=== PATIENT | male | born 1965 | race Caucasian/White ===

== ENCOUNTER 2022-05-20 19:36 | Emergency (ER) | payer MEDICAID, SELFPAY ==
[2022-05-20 19:40] VITALS: BP 253/145; PULSE 99; RESP 18; TEMP 36.3; O2SAT 96; BMI 36.0
--- NOTE | 2022-05-20 19:48 | ECG_ITS ---
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 Measurements Intervals [place] Rate: 100 P: -2 AR: 146 QRS: 70 QRSD: 126 T: -13 QT: 381 QTc: 493 Interpretive Statements SINUS TACHYCARDIA WITH FREQUENT SUPRAVENTRICULAR PREMATURE COMPLEXES INDETERMINATE AXIS RIGHT BUNDLE BRANCH BLOCK [120+ ms QRS DURATION, UPRIGHT V1, 40+ ms S IN I/aVL/V4/V5/V6] MODERATE T-WAVE ABNORMALITY, CONSIDER INFERIOR ISCHEMIA [-0.1+ mV T-WAVE IN II/aVF] No previous ECG available for comparison Electronically Signed On 05-21-2022 18:02:15 CDT by Liane Olson M.D. [id number]
--- NOTE | 2022-05-20 19:58 | XRR_ITS ---
PROCEDURE INFORMATION: Exam: XR Chest Exam date and time: 05/20/2022 8:24 PM Age: 56 years old Clinical indication: Other: HTN TECHNIQUE: Imaging protocol: Radiologic exam of the chest. Views: 1 view. COMPARISON: No relevant prior studies available. FINDINGS: Lungs: Lungs are clear bilaterally. Pleural spaces: No pleural effusion. No pneumothorax. Heart/Mediastinum: The cardiac silhouette is mildly enlarged. Mediastinal contours are unremarkable. Bones/joints: Unremarkable for age. XR/XR chest 1V portable [id number] IMPRESSION: 1. No acute cardiopulmonary process. 2. Incidental/nonacute findings are listed in the report.
[2022-05-20] MEDS: labetalol 5 mg/mL SDV 20mL 20 MG IVP ×2 (20:06→21:10)
[2022-05-20 20:08] LABS: Basophils % 0.4 %; Eosinophils # 0.2 10^3/uL (0.0-0.8); Eosinophils % 1.9 %; Hematocrit 51.6 % (42.0-52.0); Lymphocytes # 2.4 10^3/uL (0.8-4.8); Lymphocytes % 25.6 %; Mean Corpuscular HGB Conc 34.9 g/dL (30.0-36.0); Mean Corpuscular Hemoglobin 31.4 pg (28.0-34.0); Mean Corpuscular Volume 89.9 fl (80-94); Mean Platelet Volume 11.2 fL (7.4-10.4); Monocytes # 0.8 10^3/uL (0.2-0.9); Monocytes % 8.2 %; Neutrophils # 5.88 10^3/uL (1.8-7.7); Neutrophils % 63.5 %; Nucleated Red Blood Cells % 0 %; Platelet Count 218 10^3/cmm (130-400); Red Blood Count 5.74 10^6/uL (4.1-5.3); Red Cell Distribution Width 12.5 % (12.1-15.1); White Blood Count 9.3 10^3/uL (4.0-10.0)
[2022-05-20] MEDS: nitroglycerin 1 gm/inch oint Pkt 2 INCH TOPICAL (20:09)
[2022-05-20] MEDS: enalaprilat 1.25 mg/mL Inj IVP (20:09)
[2022-05-20] MEDS: amlodipine 10 mg Tablet PO (20:09)
--- NOTE | 2022-05-20 20:19 | CTR_ITS ---
PROCEDURE INFORMATION: Exam: CT Head Without Contrast Exam date and time: 05/20/2022 8:34 PM Age: 56 years old Clinical indication: Pain; Other: HTN, vision loss - resolved, headache; Headache not specified; Additional info: HTN vision loss, resolved TECHNIQUE: Imaging protocol: Computed tomography of the head without contrast. Sagittal and coronal reformatted images were created and reviewed. Radiation optimization: All CT scans at this facility use at least one of these dose optimization techniques: automated exposure control; mA and/or kV adjustment per patient size (includes targeted exams where dose is matched to clinical indication); or iterative reconstruction. COMPARISON: No relevant prior studies available. RADIATION DOSE METRICS: Total DLP (mGy-cm): 1208.58 FINDINGS: Brain: No acute intracranial hemorrhage. No acute infarct. No intra-axial or extra-axial masses. Nelson-white matter differentiation is preserved. No cerebral edema. No extra-axial fluid collections. No midline shift. No evidence for Chiari 1 malformation. Mildly decreased attenuation in the deep white matter, consistent with mild chronic microangiopathic change. Cerebral ventricles: No hydrocephalus. Paranasal sinuses: Mild mucoperiosteal thickening in the the visualized maxillary sinuses and the ethmoid and frontal sinuses. Mastoid air cells: Mastoid air cells are clear bilaterally. Auditory system: Soft tissue density in the bilateral external auditory canals, presumably representing cerumen. Orbital cavities: Globes and lenses, extraocular muscles, and optic nerves are intact bilaterally. No acute intraorbital abnormality. 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 Soft tissues: No acute abnormality of the extracranial soft tissues. CT/CT head wo con* [id number] IMPRESSION: 1. Mild mucoperiosteal thickening in the the visualized maxillary sinuses and the ethmoid and frontal sinuses. 2. Mild chronic white matter microangiopathic change. 3. Incidental/nonacute findings are listed in the report.
[2022-05-20 20:20] LABS: Alanine Aminotransferase 24 U/L (0-41); Albumin Level 4.2 g/dL (3.5-5.2); Alkaline Phosphatase 124 U/L (40-130); Anion Gap 12.5 (5-19); Aspartate Amino Transferase 20 U/L (0-40); Blood Urea Nitrogen 12 mg/dL (6-20); Calcium 9.2 mg/dL (8.5-10.5); Carbon Dioxide 30 mmol/L (22-29); Chloride 100 mmol/L (98-107); Creatinine Clr Calc Pharmacy 78.1875; Globulin 3.8 g/dL (1.3-4.6); Glomerular Filtration Rate 62.4 mL/min (90-130); Glucose 116 mg/dL (65-115); Magnesium 2.1 mg/dL (1.7-2.3); Osmolality Calculated 289 mOsm/kg (285-295); Potassium 3.5 mmol/L (3.5-5.1); Sodium 139 mmol/L (136-145); Total Bilirubin 0.5 mg/dL (0.15-1.2)
[2022-05-20 20:22] LABS: Troponin(5th) Baseline 26 ng/L (0-15)
[2022-05-20 20:32] VITALS: BP 206/122; PULSE 73; RESP 24; O2SAT 96
--- NOTE | 2022-05-20 21:18 | ED_ITS ---
HPI - General Adult General: Chief complaint: General Medical Stated complaint: Nose Bleed\High Blood Pressure Time Seen by Provider: 05/20/22 19:50 Source: patient and family History of Present Illness: 56 year old gentleman who complaints of a Nosebleed earlier in the day. It is controlled now. His blood pressure was checked at home and was in the two 50s systolic. He has had head discomfort on and off. He's had some vision changes on and off. These are resolved currently. No chest discomfort or shortness of breath. No other localising symptoms. He n otes that he used to be on blood pressure medication, but stopped a couple of years ago, ?because it made me pee all night?, and he couldn't get any sleep. Onset (ago): hour(s) Location: head Radiation: other Severity: mild Quality: other Pain Consistency: other Relieving factors: none Exacerbating factors: none Associated symptoms: Reports headache(s); Deny chest pain, confusion, cough, diaphoresis, decreased appetite, dyspnea, fevers/chills, nausea, rash, seizures, short of breath, syncope or vomiting Review of Systems Const: Denies: diaphoresis Eyes: Reports: change in vision and blurry vision; Denies: blind spots, eye discomfort or eye discharge Card: Denies: chest pain or syncope Resp: Denies: dyspnea GI: Denies: nausea or vomiting Skin/Breast: Denies: rash Neuro: Reports: headache(s); Denies: confusion Physical Exam Const: COMMON NORMALS: no acute distress and alert GENERAL APPEARANCE: cooperative; not ill appearing and not frail appearing HENMT: COMMON NORMALS: normocephalic, atraumatic and Normal external nose present HEAD & SCALP: normocephalic and atraumatic FACE & SINUS: normal facial exam and face symmetric NOSE: Normal external nose present Eye: COMMON NORMALS: Equal, round and reactive pupils present and EOMs intact bilaterally GENERAL EYE: normal light reflex VISUAL ACUITY: Yes acuity normal ALIGNMENT: Yes alignment normal PUPIL: Yes Equal, round and reactive pupils present DIRECT OPHTHALMOSCOPY: Yes normal light reflex Neck/C-Spine: GENERAL: Yes trachea midline Chest: CHEST: Yes Symmetrical chest wall rise Resp: COMMON NORMALS: normal respiratory effort, No retractions, No use of accessory muscles and clear to auscultation bilaterally AUSCULTATION: clear to auscultation bilaterally Cardio: COMMON NORMALS: regular rate and regular rhythm RATE: regular rate RHYTHM: regular rhythm GI: COMMON NORMALS: Normal to inspection, nondistended, normoactive bowel sounds present Extremity: COMMON NORMALS: no pedal edema Neuro: CRYSTAL COMA SCALE: document GCS findings Crystal coma scale eye opening: Spontaneous [place] coma scale verbal response: Orientated [place] coma scale motor response: Obey commands [place] coma scale total score: 15 COMMON NORMALS: CN's II-XII intact bilaterally SENSORIUM/ORIENTATION: Yes alert CRANIAL NERVES: Yes CN normal except as noted SPEECH: speech normal SENSORY EXAM: Yes extremities (intact) MOTOR EXAM: Normal motor muscle tone present throughout Psych: COMMON NORMALS: speech normal SPEECH: Yes normal speech Skin: COMMON NORMALS: no rashes or lesions noted GENERAL SKIN EXAM: no rashes or lesions noted Course Vital Signs: Vital signs: Vital Signs Temperature 97.4 F L 05/20/22 19:40 Pulse Rate 73 05/20/22 20:32 Respiratory Rate 24 H 05/20/22 20:32 Blood Pressure 206/122 05/20/22 20:32 Pulse Oximetry 96 05/20/22 20:32 Oxygen Delivery Me thod 05/20/22 20:32 MDM - General Adult Medical Decision Making After doses of IV labetalol, amlodipine and NTG blood pressure is now significantly improved. He has no focal neurologic deficits. His lab work up is benign. His head CT is negative. Chest X-ray is non acute. Delta troponin is negative. Let me discharged on two blood pressure medications, given the severity of his hypertension. He was assured that neither would cause him to urinate at night. Case management will be asked to make a PCP follow up for him. He knows to return for any worsening symptoms. Lab Data : 05/20/22 19:55 05/20/22 19:55 Radiology Impressions Chest X-Ray 05/20/22 19:58 IMPRESSION: 1. No acute cardiopulmonary process. 2. Incidental/nonacute findings are listed in the report. Head CT 05/20/22 20:19 IMPRESSION: 1. Mild mucoperiosteal thickening in the the visualized maxillary sinuses and the ethmoid and frontal sinuses. 2. Mild chronic white matter microangiopathic change. 3. Incidental/nonacute findings are listed in the report. Laboratory Results WBC 9.3 10^3/uL (4.0-10.0) 05/20/22 19:55 RBC 5.74 10^6/uL (4.1-5.3) H 05/20/22 19:55 Hgb 18.0 g/dL (11.7-16.6) H 05/20/22 19:55 Hct 51.6 % (42.0-52.0) 05/20/22 19:55 MCV 89.9 fl (80-94) 05/20/22 19:55 MCH 31.4 pg (28.0-34.0) 05/20/22 19:55 MCHC 34.9 g/dL (30.0-36.0) 05/20/22 19:55 RDW 12.5 % (12.1-15.1) 05/20/22 19:55 Plt Count 218 10^3/cmm (130-400) 05/20/22 19:55 MPV 11.2 fL (7.4-10.4) H 05/20/22 19:55 Neut % (Auto) 63.5 % 05/20/22 19:55 Lymph % (Auto) 25.6 % 05/20/22 19:55 Page % (Auto) 8.2 % 05/20/22 19:55 Eos % (Auto) 1.9 % 05/20/22 19:55 Baso % (Auto) 0.4 % 05/20/22 19:55 Neut # (Auto) 5.88 10^3/uL (1.8-7.7) 05/20/22 19:55 Lymph # (Auto) 2.4 10^3/uL (0.8-4.8) 05/20/22 19:55 Page # (Auto) 0.8 10^3/uL (0.2-0.9) 05/20/22 19:55 Eos # (Auto) 0.2 10^3/uL (0.0-0.8) 05/20/22 19:55 Baso # (Auto) 0.0 10^3/uL (0.0-0.1) 05/20/22 19:55 Nucleated RBC % (auto) 0 % 05/20/22 19:55 Nucleated RBCs # 0.0 /100WBC 05/20/22 19:55 Sodium 139 mmol/L (136-145) 05/20/22 19:55 Potassium 3.5 mmol/L (3.5-5.1) 05/20/22 19:55 Chloride 100 mmol/L (98-107) 05/20/22 19:55 Carbon Dioxide 30 mmol/L (22-29) H 05/20/22 19:55 Anion Gap 12.5 (5-19) 05/20/22 19:55 BUN 12 mg/dL (6-20) 05/20/22 19:55 Creatinine 1.2 mg/dL (0.7-1.2) 05/20/22 19:55 GFR Calculation 62.4 mL/min (90-130) L 05/20/22 19:55 Glucose 116 mg/dL (65-115) H 05/20/22 19:55 Calculated Osmolality 289 mOsm/kg (285-295) 05/20/22 19:55 Calcium 9.2 mg/dL (8.5-10.5) 05/20/22 19:55 Magnesium 2.1 mg/dL (1.7-2.3) 05/20/22 19:55 Total Bilirubin 0.5 mg/dL (0.15-1.2) 05/20/22 19:55 AST 20 U/L (0-40) 05/20/22 19:55 ALT 24 U/L (0-41) 05/20/22 19:55 Alkaline Phosphatase 124 U/L (40-130) 05/20/22 19:55 Troponin T Baseline 26 ng/L (0-15) H 05/20/22 19:55 Troponin T 120 Minute 24.70 ng/L (0-15) H 05/20/22 21:48 Delta Troponin T -1.30 ABS# (0-10) L 05/20/22 21:48 Total Protein 8.0 g/dL (6.6-8.7) 05/20/22 19:55 Albumin 4.2 g/dL (3.5-5.2) 05/20/22 19:55 Globulin 3.8 g/dL (1.3-4.6) 05/20/22 19:55 Discharge Plan Discharge Patient Disposition: Home Clinical Impression: Hypertension Condition: Stable Prescriptions: New metoprolol succinate 50 mg tablet extended release 24 hr 50 mg PO DAILY Qty: 30 0RF amlodipine 10 mg tablet 10 mg PO DAILY Qty: 30 0RF Discharge Orders: Discharge ED (Routine); Ordered 05/20/22 Ordered By: Russel Palacio Patient Instructions: Hypertension (ED) Activity Restrictions/Additional Instructions: Take medication as directed. A case management order has been placed to find a follow-up physician for you. Return for any chest discomfort, shortness of breath, weakness, mental status changes, etc. Check your blood pressure twice daily. Report numbers to your physician at follow-up. Coding Level of Care Code ED Supervisor Felling Bucking for Chg Fwd Exam Comprehensive
--- NOTE | 2022-05-20 21:59 | ECG_ITS ---
[facility] Test Date: 2022-05-20 Pat Name: Bayron Mata Department: Room: Gender: Male Hash Slinger: : 1965 Requested By: Russel Hammer Order Number: [id number] Deneen MD: Laine Olson M.D. Measurements Intervals [place] Rate: 68 P: -18 [place]: 144 QRS: 50 QRSD: 130 T: 176 QT: 428 QTc: 455 Interpretive Statements SINUS RHYTHM RIGHT BUNDLE BRANCH BLOCK [120+ ms QRS DURATION, UPRIGHT V1, 40+ ms S IN I/aVL/V4/V5/V6] MODERATE T-WAVE ABNORMALITY, CONSIDER LATERAL ISCHEMIA [-0.1+ mV T-WAVE IN I/aVL/V5/V6] MODERATE T-WAVE ABNORMALITY, CONSIDER INFERIOR ISCHEMIA [-0.1+ mV T-WAVE IN II/aVF] Compared to ECG 05/20/2022 19:49:38 Sinus tachycardia no longer present Indeterminate axis no longer present T-wave abnormality still present Possible ischemia still present Electronically Signed On 05-21-2022 18:27:40 CDT by Liane Olson M.D. [id number]
--- NOTE | 2022-05-23 13:15 | DCPLANNER ---
it account manager had message to speak with patient about getting established with a primary care physician. it account manager called phone number [phone], unable to speak with patient, a voicemail was left for patient to return correctional case manager phone call.
== END 2022-05-20 23:02 | disposition home or self-care (01) ==
PROVIDERS: Emergency Provider Emergency Medicine
DX: I10 Essential (primary) hypertension (principal)
CPT/HCPCS: 70450; 71045; 80053; 83735; 84484; 85025; 93005; 96374; 96375; 96376; 99285; J3490